=== PATIENT | female | born 1955 | race Caucasian/White ===

== ENCOUNTER → 2019-10-02 14:19 | Outpatient (BNVA) | payer MEDICARE, SELFPAY | PROVIDERS: Family Provider Family Medicine; PCP Family Medicine; Visit Provider Internal Medicine | DX: Z20.89 Contact with and (suspected) exposure to other communicable diseases (principal) | CPT/HCPCS: 87635 ==

== ENCOUNTER → 2020-07-17 08:55 | Outpatient (BNVA) | payer MEDICARE, SELFPAY | PROVIDERS: Family Provider Family Medicine; PCP Family Medicine; Visit Provider Surgery | DX: Z01.812 Encounter for preprocedural laboratory examination (principal); Z20.822 Contact with and (suspected) exposure to COVID-19 | CPT/HCPCS: 87635 ==

== ENCOUNTER 2020-07-22 06:29 | Day surgery (SDC) | payer MEDICARE, SELFPAY ==
[2020-07-17 13:40] VITALS: BMI 48.5
[2020-07-22 07:13] VITALS: RESP 18; TEMP 36.6
--- NOTE | 2020-07-22 07:22 | ANES.PREANE2 ---
Pre-Anesthetic Assessment Pre-Anesthetic Assessment: Height/Weight: Height 1.55 m Weight 116.573 kg Preop Diagnosis: History of colon polyps Proposed Procedure: Operation Date: 07/22/20 08:00 Proposed Procedures p Colonoscopy 453.78 z12.11(Not Applicable) - Ej Grsosman MD Was Beta Jelena taken within 24 hours: N/A Was Clonidine taken within 24 hours: N/A Social: Social History: Tobacco (Quit) and No alcohol Exam: Pre-Anes Outpt Exam: alert, oriented x 3 and regular rate & rhythm Airway: Submandibular: WNL Cervical ROM: WNL MP: 2 Dentition: False Pulmonary: Pulmonary: COPD Comments: Home O2 3L CV/HEM: CV/HEM: CAD, CHF, HTN, [place] and PVD GI: GI: GERD Metabolic: Metabolic: DM, Morbid obesity and Thyroid Anesthetic Plan: ASA status: 3 Anesthesia: MAC Risk of > 500 ml blood loss (7ml/kg in children): No PFSH Anesthesia PFSH: Medical History CAD (coronary artery disease) Cardiomyopathy HTN (hypertension) Ischemic dilated cardiomyopathy Systolic heart failure Surgical History S/P PTCA (percutaneous transluminal coronary angioplasty) Family History Father Myocardial infarction Mother CHF (congestive heart failure) Social History Smoking and tobacco status: former smoker Data Anesthesia Cardiac Studies: No Data to Display
--- NOTE | 2020-07-22 07:36 | P.HP_ITS ---
Same Day Surgery H&P Indication for Procedure/HPI DATE OF PROCEDURE: July 22, 2020 CHIEF COMPLAINT/INDICATIONFOR SURGICAL PROCEDURE: History of colon polyps PREOP DIAGNOSIS: History of colon polyps PLANNED PROCEDRUE: Operation Date: 07/22/20 08:00 Proposed Procedures p Colonoscopy 453.78 z12.11(Not Applicable) - Ej Grossman MD This is a pleasant 65 years old female patient with history of polyps that they were removed before few years ago. Patient is referred to my practice for a repeat colonoscopy and she has been on chronic Plavix therapy and she is a patient with COPD uses 3 L of oxygen per nasal cannula 12/09. Denies any bleeding per rectum. Interim history 07/22/2020 Patient comes today for surveillance colonoscopy ROS All systems have been reviewed negative except as per the above or per problem list Medications/Allergies* Home Medications Medication Instructions Recorded Confirmed Type albuterol sulfate 90 mcg/actuation 2 puff INHALATION Q6H PRN 03/11/19 07/22/20 History aerosol inhaler aspirin 81 mg tablet,delayed 81 mg PO DAILY tab 03/11/19 07/22/20 History release clopidogrel 75 mg tablet 75 mg PO DAILY tab 03/11/19 07/17/20 History diazepam 10 mg tablet 5 mg PO BID 03/11/19 07/22/20 History estradiol 2 mg tablet 1 mg PO DAILY tab 03/11/19 07/22/20 History famotidine 10 mg tablet 10 mg PO BID 03/11/19 07/22/20 History levothyroxine 25 mcg capsule 25 mcg PO DAILY cap 03/11/19 07/22/20 History losartan 25 mg tablet 25 mg PO DAILY tab 03/11/19 07/22/20 History medroxyprogesterone 2.5 mg tablet 2.5 mg PO DAILY tab 03/11/19 07/22/20 History metformin 500 mg tablet 500 mg PO BID 03/11/19 07/22/20 History metoprolol tartrate 50 mg tablet 50 mg PO BID 03/11/19 07/17/20 History pantoprazole 20 mg tablet,delayed 20 mg PO DAILY tab 03/11/19 07/22/20 History release primidone 50 mg tablet 50 mg PO BID tab 03/11/19 07/22/20 History simvastatin 40 mg tablet 40 mg PO DAILY tab 01/20/20 06/02/21 History furosemide 20 mg tablet 40 mg PO BID tab 06/20/19 07/22/20 History glimepiride 2 mg PO DAILY 07/17/20 07/22/20 History Allergies/Adverse Reactions Allergy/AdvReac Type Severity Reaction Status Date / Time codeine Allergy Unknown Unknown Verified 07/22/20 07:37 latex Allergy Unknown Unknown Verified 07/22/20 07:37 lisinopril Allergy Unknown Unknown Verified 07/22/20 07:37 Pertinent History/Comorbid Conditions* Medical History (Updated 06/11/20 @ 08:38 by Ej Grossman MD) CAD (coronary artery disease) Cardiomyopathy HTN (hypertension) Ischemic dilated cardiomyopathy Systolic heart failure Surgical History (Updated 06/22/19 @ 15:16 by Drew Gillis MD) S/P PTCA (percutaneous transluminal coronary angioplasty) Family History (Updated 03/11/19 @ 10:00 by Irma Garcia LPN) CHF (congestive heart failure) Mother Myocardial infarction Father Social History Smoking and tobacco status: former smoker Pertinent Exam Findings alert, oriented x 3, clear to auscultation bilaterally, regular rate & rhythm and procedure specific exam findings (Abdominal examination nontender moderately distended, morbidly obese) Recommendations Surgery/Procedure today (Surveillance colonoscopy) Other Plans: Plan of care; After thorough history and physical examination and reviewing the chart, plan to perform surveillance colonoscopy. I discussed with the patient in details the risks,benefits,alternatives and indications.The risk of aspiration, bleeding, soft tissue injury, perforation of the colon and other potential concomitant complications were explained to the patient in details,also the potential need for Laproscoy/Laparotomy to repair any related complications including but not limited to colectomy and or Closotomy.The patient understood this well and did agree to proceed. Rationale was carefully and clearly discussed with the patient.Appropriate informed consent have been reviewed and signed All questions have been answered and all concerns have been addressed to patient's satisfaction. Verbal and written Instructions were given to the patient for colonoscopy prep Coding Level of Care Code Acute [employer] Operator for Gregg Spencer
[2020-07-22] MEDS: sodium chloride 0.9% 1,000 ML 30 ML IV (07:42)
[2020-07-22 07:47] LABS: Glucose Point of Care 245 mg/dL (70-110)
[2020-07-22 08:35] VITALS: BP 95/61; PULSE 70; RESP 16; TEMP 36.2; O2SAT 92
--- NOTE | 2020-07-22 12:48 | ANE.PACU2 ---
Inpatient post-anesthesia follow up: Airway intact: Yes Vital signs: Temperature 97.1 F Pulse Rate 70 Respiratory Rate 16 Blood Pressure 95/61 Pulse Oximetry 92 Oxygen Delivery Me thod Nasal Cannula Oxygen Flow Rate 3 Fraction of Inspir ed Oxygen Hydration adequate: Yes Nausea and vomiting: No Pain level: 1 Mental status: Baseline
== END 2020-07-22 09:04 | disposition home or self-care (01) ==
PROVIDERS: PCP Family Medicine; Visit Provider Surgery
PROC: 0DJD8ZZ Inspection of Lower Intestinal Tract, Via Natural or Artificial Opening Endoscopic (ICD-10-PCS; CPT 45378; principal; 2020-07-22 08:00)
DX: Z12.11 Encounter for screening for malignant neoplasm of colon (principal); K57.30 Diverticulosis of large intestine without perforation or abscess without bleeding; Z86.010 Personal history of colon polyps; J44.9 Chronic obstructive pulmonary disease, unspecified; Z99.81 Dependence on supplemental oxygen; I25.10 Atherosclerotic heart disease of native coronary artery without angina pectoris; I11.0 Hypertensive heart disease with heart failure; I50.20 Unspecified systolic (congestive) heart failure; Z87.891 Personal history of nicotine dependence; I25.2 Old myocardial infarction; E11.9 Type 2 diabetes mellitus without complications; E66.01 Morbid (severe) obesity due to excess calories; Z68.42 Body mass index [BMI] 45.0-49.9, adult; Z82.49 Family history of ischemic heart disease and other diseases of the circulatory system
CPT/HCPCS: 36416; 45378; 82962; 96360; J2704; J7030

== ENCOUNTER → 2021-09-09 14:42 | Outpatient (BNVA) | payer MEDICARE, SELFPAY | PROVIDERS: PCP Family Medicine; Visit Provider Internal Medicine | DX: I11.0 Hypertensive heart disease with heart failure (principal); I50.22 Chronic systolic (congestive) heart failure; I25.5 Ischemic cardiomyopathy; I42.0 Dilated cardiomyopathy; Z87.891 Personal history of nicotine dependence | CPT/HCPCS: 99213; 99214 ==

== ENCOUNTER 2022-03-31 13:45 | Outpatient (CLI) | payer MEDICARE, SELFPAY ==
--- NOTE | 2022-03-31 14:03 | MM_ITS ---
WS: [id number] BILATERAL 3D TOMOSYNTHESIS DIGITAL SCREENING MAMMOGRAPHY WITH CAD CLINICAL INFORMATION: SCREENING HISTORY: Screening mammogram. Chronic green discharge both breasts. COMPARISON: TECHNIQUE: Bilateral CC and MLO views. FINDINGS: Scattered fibroglandular densities bilaterally. No suspicious focal mass, asymmetry, calcifications, or architectural distortion. No evidence of malignancy. Incidental punctate calcifications. Stable ov oid nodule anterior RIGHT breast unchanged since 2012. Subareolar nodularity RIGHT breast unchanged s suellen 2010 MM/[id number] IMPRESSION: BI-RADS: 2-Benign FOLLOW UP: 1 Year Follow-up Recommend return to annual screening mammography.
== END 2022-03-31 13:46 | disposition home or self-care (01) ==
PROVIDERS: PCP Family Medicine; Visit Provider Family Medicine
DX: Z12.31 Encounter for screening mammogram for malignant neoplasm of breast (principal)
CPT/HCPCS: 77063; 77067

== ENCOUNTER → 2022-09-16 10:02 | Outpatient (BNVA) | payer MEDICARE, SELFPAY | PROVIDERS: PCP Family Medicine; Visit Provider Internal Medicine | DX: I11.0 Hypertensive heart disease with heart failure (principal); I50.20 Unspecified systolic (congestive) heart failure; I25.5 Ischemic cardiomyopathy; I42.0 Dilated cardiomyopathy; Z87.891 Personal history of nicotine dependence | CPT/HCPCS: 99214 ==

== ENCOUNTER → 2025-01-27 13:02 | Outpatient (BNVA) | payer MEDICARE, SELFPAY | PROVIDERS: PCP Family Medicine; Visit Provider Family Medicine | DX: Z11.59 Encounter for screening for other viral diseases (principal); E11.65 Type 2 diabetes mellitus with hyperglycemia; I25.10 Atherosclerotic heart disease of native coronary artery without angina pectoris; I10 Essential (primary) hypertension; I25.2 Old myocardial infarction | CPT/HCPCS: 80053; 80061; 82043; 83036; 84439; 84443; 85025; 86803 ==